=== PATIENT | female | born 1990 | race Caucasian/White ===

== ENCOUNTER 2017-08-11 00:40 | Emergency (ER) | payer SELFPAY, MEDICAID | END 2017-08-11 04:32 | disposition left against medical advice (07) | LOC: FTE 00:40 | DX: Z53.21 Procedure and treatment not carried out due to patient leaving prior to being seen by health care provider (principal) ==

== ENCOUNTER 2018-01-04 10:15 | Emergency (ER) | payer SELFPAY ==
[2018-01-04] MEDS: HYDROCODONE/APAP (5/325) TAB PO ×2 (10:41)
== END 2018-01-04 10:49 | disposition home or self-care (01) ==
LOC: FTE 10:15
DX: H92.02 Otalgia, left ear (principal)
CPT/HCPCS: 99284

== ENCOUNTER 2018-06-19 12:55 | Emergency (ER) | payer SELFPAY ==
[2018-06-19] MEDS: HYDROCODONE/APAP (5/325) TAB PO (14:19)
[2018-06-19] MEDS: IBUPROFEN 600 MG TAB PO (14:19)
== END 2018-06-19 15:34 | disposition home or self-care (01) ==
LOC: FTE 12:55
DX: H92.01 Otalgia, right ear (principal)
CPT/HCPCS: 99283